=== PATIENT | male | born 1995 | race Two or more races ===

== ENCOUNTER 2021-10-24 14:25 | Emergency (ER) | payer MEDICAID, OTHER ==
[~2021-10-24] VITALS: Ht 180.3 cm; Wt 120.9 kg
[2021-10-24 14:37] VITALS: BP 124/71
[2021-10-24 15:20] LABS: Urine Bacteria NONE SEEN /hpf (None Seen); Urine Blood TRACE /uL (Negative); Urine Mucus FEW (None Seen); Urine Specific Gravity 1.026 (1.001-1.035); Urine WBC 1 /hpf (0 - 3)
== END 2021-10-24 20:30 | disposition left against medical advice (07) ==
LOC: ER 14:25
DX: R10.84 Generalized abdominal pain (principal); Z53.21 Procedure and treatment not carried out due to patient leaving prior to being seen by health care provider
CPT/HCPCS: 81001